=== PATIENT | male | born 1960 | race Caucasian/White ===

== ENCOUNTER 2021-03-20 10:03 | Inpatient (IN) | payer BC, SELFPAY ==
[2021-03-20] VITALS (48 sets, daily range): BP systolic 108–154; BP diastolic 53–85; PULSE 52–96; RESP 11–28; TEMP 36.6–39.2; O2SAT 94–100; BMI 24.2
--- NOTE | 2021-03-20 10:58 | W.ED.GENADLT ---
HPI - General Adult General: Chief complaint: General Medical Stated complaint: LOW BLOOD COUNT Time Seen by Provider: 03/20/21 10:53 History of Present Illness: HPI narrative: 60-year-old male presents with low blood count patient reports that he was seen by his primary care provider yesterday and had labs drawn. He got a call and was told to come in to the ER today because his hemoglobin was around 3.9. Patient reports that for months he has had some black tarry stool. He never had a colonoscopy. He reports he gets a little winded and short of breath with any activity. He complains of some mild left upper quadrant/left lower chest pain has been there for couple months. No other systemic complaints Associated symptoms: Deny chest pain, headache(s), nausea, rash, palpitations or vomiting Review of Systems Const: Reports: fatigue; Denies: fever(s) or chills Eyes: Denies: change in vision ENMT: Denies: throat pain or mouth pain Card: Reports: dyspnea on exertion; Denies: chest pain, palpitations or irregular heart rhythm Resp: Denies: productive cough, non-productive cough or wheezing GI: Reports: melena; Denies: abdominal pain, nausea or vomiting : Denies: flank pain or difficulty urinating Musc: Denies: neck pain or back pain Skin/Breast: Denies: rash Neuro: Denies: headache(s) Psych: Denies: anxiety or depression Physical Exam Const: COMMON NORMALS: no acute distress and no limitations Resp: COMMON NORMALS: normal respiratory effort and clear to auscultation bilaterally EFFORT & INSPECTION: Yes able to speak in complete sentences AUSCULTATION: clear to auscultation bilaterally Cardio: COMMON NORMALS: regular rate and regular rhythm RATE: regular rate RHYTHM: regular rhythm GI: COMMON NORMALS: Soft to palpation and non-tender PALPATION: Yes Soft to palpation Extremity: COMMON NORMALS: normal to inspection and full ROM Psych: COMMON NORMALS: mental status grossly normal and speech normal ATTITUDE: Yes calm SPEECH: Yes normal speech Skin: GENERAL SKIN EXAM: pallor Course Vital Signs: Vital signs: Vital Signs Temperature 97.9 F 03/20/21 10:47 Pulse Rate 74 03/20/21 10:47 Respiratory Rate 18 03/20/21 10:47 Blood Pressure 129/72 03/20/21 10:47 Pulse Oximetry 100 03/20/21 10:47 Coding Level of Care Code ED Mobile Application Engineer for [facility]
[2021-03-20] MEDS: pantoprazole 40 mg SDV IVP ×2 (11:38→22:09)
[2021-03-20 11:45] LABS: INR 1.06 (0.8-1.2)
[2021-03-20 11:46] LABS: Partial Thromboplastin Time 30.3 SECONDS (23.9-36.7)
[2021-03-20 12:00] LABS: Basophils % 0.5 %; Eosinophils # 0.1 10^3/uL (0.0-0.8); Eosinophils % 1.1 %; Lymphocytes # 1.1 10^3/uL (0.8-4.8); Mean Corpuscular HGB Conc 22.7 g/dL (30.0-36.0); Mean Corpuscular Hemoglobin 13.2 pg (28.0-34.0); Mean Corpuscular Volume 58.4 fL (80-94); Mean Platelet Volume 8.9 fL (7.4-10.4); Monocytes # 0.8 10^3/uL (0.2-0.9); Monocytes % 12.5 %; Neutrophils # 4.17 10^3/uL (1.8-7.7); Neutrophils % 67.4 %; Nucleated Red Blood Cells % 0.3 %; Platelet Count 619 10^3/cmm (130-400); Red Blood Count 2.19 10^6/uL (4.1-5.3); Red Cell Distribution Width 23.9 % (12.1-15.1); White Blood Count 6.2 10^3/uL (4.0-10.0)
[2021-03-20 12:01] LABS: Alanine Aminotransferase < 5 U/L (0-41); Albumin Level 3.9 g/dL (3.5-5.2); Alkaline Phosphatase 118 IU/L (40-130); Anion Gap 13.9 (5-19); Aspartate Amino Transferase 8 U/L (0-40); Blood Urea Nitrogen 11 mg/dL (6-20); Calcium 8.2 mg/dL (8.5-10.5); Carbon Dioxide 23 mmol/L (22-29); Chloride 101 mmol/L (98-107); Globulin 2.2 g/dL (1.3-4.6); Glomerular Filtration Rate 137.9 mL/min (90-130); Glucose 91 mg/dL (65-115); Magnesium 2.2 mg/dL (1.7-2.3); Osmolality Calculated 277 mOsm/kg (285-295); Potassium 3.9 mmol/L (3.5-5.1); Sodium 134 mmol/L (136-145); Total Bilirubin 0.3 mg/dL (0.15-1.2); Total Protein 6.1 g/dL (6.6-8.7)
[2021-03-20 12:10] LABS: Hematocrit 12.8 % (42.0-52.0); Hemoglobin 2.9 g/dL (11.7-16.6)
--- NOTE | 2021-03-20 12:30 | CT_ITS ---
WS: [id number] CT scan of the abdomen and pelvis without Oral and IV contrast. Additional two-dimensional coronal an d sagittal reconstruction was performed. 03/20/2021 Clinical Data: hgb 2.9, black stool Comparison: None. DLP: 979.[address] scans at [facility] use at least one of these dose optimization techniques: automat ed exposure control; mA and/or kV adjustment per patient size (includes targeted exams where dose is matched to clinical indication); or iterative reconstruction. Findings: The lower lungs show no nodules, masses or effusions. The liver, spleen, adrenal glands and pancreas are normal. There are numerous gallstones present but there is no pericholecystic fluid. The kidneys show a nonobstructive 0.3 cm central right renal calcu tere. The left kidney is normal. No cysts, masses or hydronephrosis is seen. The abdominal aorta is no rmal in size with minimal calcification in the wall.. No appendicitis or diverticulitis is seen. The stomach and small bowel are not remarkable. The colon is usually dilated with a large amount of fecal material within. The bladder is unremarkable. No inguinal hernia is seen. The bones of the lower thorax, lumbar spine, pelvis, and hips show only mild osteoarthritic change of the lower lumbar vertebral bodies. CT/CT abdomen pelvis wo con [id number] Impression: 1. Cholelithiasis. 2. Nonobstructing small central right renal calculus. 3. Large amount of fecal material throughout the colon.
[2021-03-20] MEDS: sodium chloride 0.9% 500 ML 999 ML IV (12:54)
--- NOTE | 2021-03-20 14:12 | PM.HP ---
Providers/Chief Complaint Primary Care Provider: Salma Perez DO Chief Complaint: LOW BLOOD COUNT History of Present Illness Hao Reddy is a 60 year old male with no significant past medical history, who presents to [facility] due to complaints of low hemoglobin. Patient tells me that he was following up with his regular primary care physician, who ordered a CBC, he was called by his primary care provider this morning that his hemoglobin was 3 that he should come to the emergency room immediately. Patient tells me that for the last year, he has been feeling weak, fatigued, tired, has had 40 pound weight loss, does report lightheadedness and dizziness with exertion, some chest palpitations, does report dark stools, no bloody stools, does have hemorrhoids, no history of GI bleeds, no personal family history of colon cancer, does report ibuprofen use regularly, no hematemesis, does consume alcohol on the weekends, no history of liver cirrhosis, he tells me that he has bowel movements daily, no history of constipation. He has never had a colonoscopy, has never had an EGD, no fevers, no chills. Review of Systems Const: Reports: fatigue and malaise; Denies: fever(s) or chills Eyes: Denies: change in vision or blurry vision ENMT: Denies: nasal congestion Card: Reports: palpitations and lightheadedness; Denies: chest pain or pre-syncope Resp: Denies: dyspnea, productive cough, non-productive cough or wheezing GI: Denies: abdominal pain, nausea, vomiting, hematemesis, diarrhea, constipation, hematochezia or melena : Denies: flank pain, difficulty urinating, dysuria or urinary frequency Musc: Denies: neck pain or back pain Skin/Breast: Denies: rash Neuro: Denies: headache(s), dizziness or vertigo Psych: Denies: anxiety or depression Endo: Denies: polyuria or polydipsia Medications/Allergies Home Medications Medication Instructions Recorded Confirmed Last Taken Type ibuprofen 200 mg PO Q6H PRN 03/20/21 03/20/21 03/20/21 01:30 History Allergies Allergy/AdvReac Type Severity Reaction Status Date / Time No Known Allergies Allergy Verified 03/20/21 10:51 PFSH Acute PFSH: Surgical History (Updated 03/20/21 @ 14:16 by Kartik Blanca MD) History of appendectomy Family History (Updated 03/20/21 @ 14:16 by Kartik Blanca MD) Father CAD (coronary artery disease) Mother Melanoma Father Throat cancer Social History (Updated 03/20/21 @ 14:17 by Kartik Blanca MD) Smoking and tobacco status: never smoked Alcohol intake: current Alcohol use comment: Drinks only on the weekends Substance/Drug Use: never Vitals/I&O/Wt Last Vital Signs Temp 98.7 F 03/20/21 13:18 Pulse 79 03/20/21 14:00 Resp 18 03/20/21 14:00 BP 125/66 03/20/21 14:00 Pulse Ox 94 03/20/21 14:00 03/19/21 03/20/21 03/20/21 22:59 06:59 14:59 Intake Total 0 / 0 Balance 0 / 0 Weight last 48 hrs Weight 76.657 kg Physical Exam Narrative: EXAM NARRATIVE: Quite pale appearing, has conjunctival pallor Const: COMMON NORMALS: no acute distress and patient oriented x3 GENERAL APPEARANCE: cooperative and comfortable HENMT: COMMON NORMALS: normocephalic HEAD & SCALP: normocephalic Eye: COMMON NORMALS: Equal, round and reactive pupils present and EOMs intact bilaterally GENERAL EYE: appearance normal, both eyes and all related structures PUPIL: Yes Equal, round and reactive pupils present Neck/C-Spine: COMMON NORMALS: full ROM, no lymphadenopathy, no JVD and Thyroid normal THYROID: Thyroid normal Lymph: LYMPHATIC: no lymphadenopathy noted Resp: COMMON NORMALS: normal respiratory effort, No retractions, No use of accessory muscles and clear to auscultation bilaterally AUSCULTATION: clear to auscultation bilaterally Cardio: COMMON NORMALS: no JVD, regular rate, regular rhythm, S1 normal heart sound present, S2 normal heart sound present, No gallops present (Cardio), No clicks present (Cardio) and No murmurs present (Cardio) RATE: regular rate RHYTHM: regular rhythm HEART SOUNDS: S1 normal heart sound present and S2 normal heart sound present GI: COMMON NORMALS: Normal to inspection, nondistended, normoactive bowel sounds present, Soft to palpation, non-tender and No hepatosplenomegaly present PALPATION: Yes Soft to palpation and Yes No hepatosplenomegaly present OTHER: Abdominal density felt throughout right upper quadrant and left upper quadrant Extremity: COMMON NORMALS: normal to inspection, full ROM and no pedal edema Neuro: COMMON NORMALS: patient oriented x3, CN's II-XII intact bilaterally, moves all extremities and no focal motor deficits Psych: COMMON NORMALS: mental status grossly normal, Normal thought process present and cooperative THOUGHT PROCESS: Normal thought process present Data : 03/20/21 11:26 03/20/21 11:26 A&P Assessment and plan (1) Acute anemia: -With fatigue, malaise, weight loss, lightheadedness -Concerning for underlying malignancy -Does have significant stool burden, possible obstructive malignancy -But cannot rule out underlying GI bleed especially NSAID use -No cardiovascular history, no history of CHF -Hemoglobin 2.9 -Hemodynamic stable, although does complain of lightheadedness Plan: -Admit to ICU -We will transfuse 4 units PRBC, Lasix during the third unit, 1 unit FFP -Monitor INR, monitor calcium -We will order iron studies, B12, folate, ESR, CEA -Monitor respiratory status closely, monitor for fluid overload, Lasix as needed -Posttransfusion H&H -Protonix load followed by Protonix 40 IV twice daily -Does have significant stool burden, on the CT scan concerning for fecal impaction, possible obstructive malignancy -Hold off on a bowel regimen until general surgery sees him -Keep n.p.o., for possible EGD -Nurse notified that bladder is full, patient was advised to urinate into urinal if not we will have to place a Rivera -General surgery on consult -Full code -SCDs for DVT prophylaxis Status: Acute (2) Fecal impaction: Status: Acute Attestations Medical Necessity Statement*: She requires hospitalization, inpatient, greater than 2 midnights, for acute anemia Coding Level of Care Code Acute Teacher Associate for [facility] Fwd Diagnoses Acute anemia D64.9 Fecal impaction K56.41
[2021-03-20 15:05] LABS: Ferritin 5 ng/mL (30-400); Iron 8 ug/dL (59-158)
[2021-03-20 15:21] LABS: Vitamin B12 465 pg/mL (232-1245)
[2021-03-20 15:22] LABS: Folate Level 10.3 ng/mL (4.5-32.2)
[2021-03-20 15:36] LABS: Carcinoembryonic Antigen 12.4 ng/mL (0.0-4.7)
--- NOTE | 2021-03-20 15:46 | PC.NURSE ---
Blood transfusion completed
[2021-03-20 16:09] LABS: Reticulocyte % 1.9 % (0.5-2.0)
[2021-03-20 16:18] LABS: LAB Peripheral Smear Sent for Review
[2021-03-20 16:48] LABS: Erythrocyte Sedimentation Rate 10 mm/hr (0-10)
[2021-03-20 18:21] LABS: NT Pro B Type Natriuretic Pept 411 pg/mL (0-125)
[2021-03-20 18:33] LABS: INR 1.08 (0.8-1.2)
[2021-03-20 18:43] LABS: Lactic Sepsis W/Reflex 0.9 mmol/L (0.5-2.2)
[2021-03-20] MEDS: sodium chloride 0.9% (100 ml) 100 ML 35 ML (19:56)
[2021-03-20] MEDS: FUROsemide 10 mg/mL SDV 4mL 40 MG IVP (19:57)
[2021-03-20 21:50] LABS: Hematocrit 21.6 % (42.0-52.0)
[2021-03-20 21:59] LABS: Hemoglobin 6.4 g/dL (11.7-16.6)
[2021-03-20 22:03] LABS: Thyroid Stimulating Hormone 1.91 uIU/mL (0.27-4.20)
[2021-03-20] MEDS: acetaminophen 325 mg Tablet 650 MG PO (22:29)
--- NOTE | 2021-03-20 23:30 | PC.NURSE ---
Dr. Gifford notified of post transfusion temperatures, orders received. See new orders. Dr. Gifford also ordered to give perviously ordered FFP with CBC 1hr post transfusion, repeat H&H Q4hr, monitor and report.
[2021-03-21] VITALS (47 sets, daily range): BP systolic 91–126; BP diastolic 40–75; PULSE 56–83; RESP 14–35; TEMP 36.8–38.6; O2SAT 95–100
[2021-03-21 03:48] LABS: Alanine Aminotransferase < 5 U/L (0-41); Albumin Level 3.6 g/dL (3.5-5.2); Alkaline Phosphatase 112 IU/L (40-130); Anion Gap 12.6 (5-19); Aspartate Amino Transferase 14 U/L (0-40); Blood Urea Nitrogen 9 mg/dL (6-20); Calcium 7.9 mg/dL (8.5-10.5); Carbon Dioxide 24 mmol/L (22-29); Chloride 99 mmol/L (98-107); Globulin 2.3 g/dL (1.3-4.6); Glomerular Filtration Rate 115.4 mL/min (90-130); Glucose 92 mg/dL (65-115); Osmolality Calculated 272 mOsm/kg (285-295); Phosphorus 3.7 mg/dL (2.5-4.5); Potassium 3.6 mmol/L (3.5-5.1); Sodium 132 mmol/L (136-145); Total Bilirubin 1.5 mg/dL (0.15-1.2); Total Protein 5.9 g/dL (6.6-8.7)
[2021-03-21 04:12] LABS: Basophils # 0.1 10^3/uL (0.0-0.1); Basophils % 0.9 %; Eosinophils % 0.2 %; Lymphocytes # 0.7 10^3/uL (0.8-4.8); Lymphocytes % 10.5 %; Mean Corpuscular HGB Conc 28.6 g/dL (30.0-36.0); Mean Corpuscular Hemoglobin 19.5 pg (28.0-34.0); Mean Platelet Volume 8.7 fL (7.4-10.4); Monocytes # 0.5 10^3/uL (0.2-0.9); Monocytes % 7.5 %; Neutrophils # 5.29 10^3/uL (1.8-7.7); Neutrophils % 80.4 %; Nucleated Red Blood Cells % 0.6 %; Platelet Count 521 10^3/cmm (130-400); Red Blood Count 2.93 10^6/uL (4.1-5.3); Red Cell Distribution Width 29.6 % (12.1-15.1); White Blood Count 6.6 10^3/uL (4.0-10.0)
[2021-03-21 04:14] LABS: Hematocrit 19.9 % (42.0-52.0); Hemoglobin 5.7 g/dL (11.7-16.6)
[2021-03-21 04:15] LABS: Mean Corpuscular Volume 67.9 fL (80-94)
[2021-03-21] MEDS: acetaminophen 325 mg Tablet 650 MG PO ×2 (05:09→14:38)
[2021-03-21] MEDS: sodium chloride 0.9% 250 ML IV (05:32)
[2021-03-21] MEDS: sodium chloride 0.9% 250 ML 100 ML IV (07:39)
[2021-03-21] MEDS: magnesium citrate Btl 296 mL PO ×3 (08:36→20:15)
--- NOTE | 2021-03-21 08:56 | PC.CHAP ---
Pastoral Care Encounter/Spiritual Assessment Type of Contact [] Declined labelling machine operator visit [] Patient/Family/Request visit [] Outpatient visit [] Follow-up visit [] Physician referral [] Code/Alert [x] Routine visit [] Staff referral [] Actively dying [] Patient sleeping [] Family support [] [] Out of room [] Palliative care [] [] Receiving care in room [] Pre-surgical visit [] Trauma [] Long length of stay [x] ICU visit [] Other: Relational/Emotional Strength [] Patient feels connected with others/family/visitors/staff [] Distress [] Loneliness/isolation [] Abandonment Spirituality of Patient [] Person of Do [] Attends Restoration of their Do [] Believes in Prayer [] Reads Bible or Christianity materials [] There are Spiritual issues to be addressed Office Automation Technician Interventions [x] Prayer [] Active listening [] Non-anxious presence [] Spiritual/emotional support [] Crisis/trauma care [] Spiritual counseling [] Bereavement support [] Provided bereavement packet [] Provided Bible/devotional materials [] Provided toy/stuffed animal, coloring book to patient or family member [] Provided Communion [] Anointing/[place] [] Salvation [x] Completed spiritual assessment [] Other: Impact on Illness or Injury [] Angry [] Fearful [] Anxious [] Often cries [] Exhaustion [] Unable to work [] Unable to attend protestant [] Unable to walk/stand [] Unable to read [] Unable to drive [] Unable to eat/drink [] Unable to sleep [] Unable to be with family [] Patient intubated [] Other: Summary Time spent with patient
--- NOTE | 2021-03-21 09:58 | P.CONIM_ITS ---
Providers/Reason For Consult Consulting Physican/Specialty*: Kartik Blanca MD Reason for Consult*: Anemia Attending Physician: Kartik Blanca MD Primary Care Provider: Salma Perez DO History of Present Illness History of Present Illness Hao Reddy is a 60 year old male who had been feeling lightheaded and dizzy for the last few months. Patient had recent blood work with his PCP and was noted to have a hemoglobin around 3. Patient denies any abdominal pain, nausea, vomiting, hematemesis, hematochezia, melena. No family history of colon cancer. No prior EGD or colonoscopy. Patient denies history of peptic ulcer disease. He states that he has been more constipated recently and has a bowel movement every other day Review of Systems General: Reports: 10 or more systems reviewed and unremarkable except in HPI and below Meds/Allergies Home Medications and Allergies Home Medications Medication Instructions Recorded Confirmed Last Taken Type ibuprofen 200 mg PO Q6H PRN 03/20/21 03/20/21 03/20/21 01:30 History Allergies Allergy/AdvReac Type Severity Reaction Status Date / Time No Known Allergies Allergy Verified 03/20/21 10:51 Current Medications Current Medications Generic Name Dose Route Start Last Admin Trade Name Freq PRN Reason Stop Dose Admin Acetaminophen 650 mg 03/20/21 17:03 03/21/21 05:09 Acetaminophen 325 Mg Tablet PO 650 mg Q6H PRN Administration Mild/Mod Pain Or Temp >/= 101 Pantoprazole Sodium 40 mg 03/20/21 23:00 03/20/21 22:09 Pantoprazole 40 Mg Sdv IVP 40 mg Q12H CORINNE Administration PFSH Acute PFSH: Surgical History History of appendectomy Family History Father CAD (coronary artery disease) Mother Melanoma Father Throat cancer Social History Smoking and tobacco status: never smoked Alcohol intake: current Alcohol use comment: Drinks only on the weekends Substance/Drug Use: never Vitals/I&O/Wt Last Vital Signs Temp 98.6 F 03/21/21 08:56 Pulse 77 03/21/21 08:56 Resp 18 03/21/21 08:56 BP 111/53 03/21/21 08:56 Pulse Ox 98 03/21/21 07:56 03/20/21 03/21/21 03/21/21 22:59 06:59 14:59 Intake Total 350 / 1396 296 / 1396 1100 / 1100 Output Total 2200 / 3720 1520 / 3720 Balance -1850 / -2324 -1224 / -2324 1100 / 1100 Weight last 48 hrs Weight 169 lb Physical Exam Narrative: EXAM NARRATIVE: HEENT: Normocephalic Eye: Sclera /conjunctiva normal Abdomen: Soft to palpation, nontender, slightly distended Neurological: Oriented to place person and time Skin: Intact, no lesions appreciated on gross exam Data Micro: Micro: Microbiology 03/20/21 22:18 Blood Culture - Pr eliminary Blood SPECIMEN [facility] 03/20/21 22:18 Blood Culture - Pr eliminary Blood SPECIMEN [facility] A&P Assessment and plan (1) Acute anemia: 60-year-old male with hemoglobin of 5.7 today after blood transfusion, no evidence of active GI bleed Plan for EGD/colonoscopy under [facility] Procedure, risks, benefits and alternatives have been discussed with the patient who wishes to proceed with surgery. Clear liquid diet and n.p.o. after midnight CT abdomen pelvis did not show any acute pathology except for significant fecal impaction. Discussed with the patient that given his low blood count we need to rule out GI source for bleed. Status: Acute (2) Fecal impaction: We will start him on a bowel regimen for the panendoscopy tomorrow but also add milk of molasses enema as well as another bottle of magnesium citrate this morning. Status: Acute Coding Level of Care Code Acute Community Relations Director for [facility] Fwd Diagnoses Acute anemia D64.9 Fecal impaction K56.41
[2021-03-21] MEDS: pantoprazole 40 mg SDV IVP ×2 (11:14→23:17)
--- NOTE | 2021-03-21 11:18 | PM.PN ---
Subjective Subjective: Interval history: Patient was examined this morning, he tells me that he is feeling a lot better, he is received a total of 4 units of PRBC, 1 unit FFP, is a lot more colored him, he still has not had a bowel movement, is taking a bowel prep, no shortness of breath, no lightheadedness, no dizziness, no nausea, no vomiting Vitals/I&O/Wt Last Vital Signs Temp 98.6 F 03/21/21 08:56 Pulse 61 03/21/21 10:00 Resp 17 03/21/21 10:00 BP 106/57 03/21/21 10:00 Pulse Ox 99 03/21/21 10:00 03/20/21 03/21/21 03/21/21 22:59 06:59 14:59 Intake Total 350 / 350 296 / 646 1580 / 1580 Output Total 2200 / 2200 1520 / 3720 400 / 400 Balance -1850 / -1850 -1224 / -3074 1180 / 1180 Weight last 48 hrs Weight 76.657 kg Physical Exam Narrative: EXAM NARRATIVE: Has much more color, giselle cheeks Const: COMMON NORMALS: no acute distress and patient oriented x3 HENMT: COMMON NORMALS: normocephalic HEAD & SCALP: normocephalic Neck/C-Spine: COMMON NORMALS: no JVD Resp: COMMON NORMALS: normal respiratory effort, No retractions, No use of accessory muscles and clear to auscultation bilaterally AUSCULTATION: clear to auscultation bilaterally Cardio: COMMON NORMALS: no JVD, regular rate, regular rhythm, S1 normal heart sound present and S2 normal heart sound present RATE: regular rate RHYTHM: regular rhythm HEART SOUNDS: S1 normal heart sound present and S2 normal heart sound present GI: COMMON NORMALS: Normal to inspection, nondistended, normoactive bowel sounds present, Soft to palpation, non-tender, No hepatosplenomegaly present and no bruits PALPATION: Yes Soft to palpation, Yes No hepatosplenomegaly present and Yes Palpable mass present (Right upper quadrant, left upper quadrant, likely related to high stool bur) Extremity: COMMON NORMALS: capillary refill normal, no clubbing, cyanosis or edema, no calf tenderness and no pedal edema Neuro: COMMON NORMALS: patient oriented x3 Psych: COMMON NORMALS: mental status grossly normal Data : 03/21/21 03:00 03/21/21 03:00 Micro: Microbiology 03/20/21 22:18 Blood Culture - Preliminary Blood SPECIMEN COLLECTED 03/20/21 22:18 Blood Culture - Preliminary Blood SPECIMEN COLLECTED A&P Assessment and plan (1) Acute anemia: -With fatigue, malaise, weight loss, lightheadedness -Concerning for underlying malignancy -Does have significant stool burden, possible obstructive malignancy -But cannot rule out underlying GI bleed especially NSAID use -No cardiovascular history, no history of CHF -Hemoglobin 5.9 -Working on his fourth unit of blood, 1 unit FFP -Hemodynamic stable, although does complain of lightheadedness Plan: -Admit to ICU -Posttransfusion H&H -Monitor INR, monitor calcium -Has severe iron deficiency anemia, hold off on giving iron due to concerns for iron overload given volume of blood products -Monitor respiratory status closely, monitor for fluid overload, Lasix as needed -Posttransfusion H&H -Protonix load followed by Protonix 40 IV twice daily -Does have significant stool burden, on the CT scan concerning for fecal impaction, possible obstructive malignancy -He is receiving a bowel regimen -Clinical diet -Plan for EGD and colonoscopy tomorrow -General surgery on consult -Full code -SCDs for DVT prophylaxis Plan for today monitor hemoglobin, monitor hemodynamics, monitor INR, monitor calcium, transfuse FFP, PRBC as needed, bowel prep, n.p.o. midnight Status: Acute (2) Fecal impaction: Status: Acute Attestations Medical Necessity Statement*: Patient requires hospitalization, inpatient, greater than 2 midnights, for acute anemia Coding Level of Care Code Acute Creosoting Engineer for [facility] Fwd Diagnoses Acute anemia D64.9 Fecal impaction K56.41
[2021-03-21 12:22] LABS: Basophils % 0.5 %; Hematocrit 25.6 % (42.0-52.0); Hemoglobin 7.4 g/dL (11.7-16.6); Lymphocytes # 0.6 10^3/uL (0.8-4.8); Lymphocytes % 9.7 %; Mean Corpuscular HGB Conc 28.9 g/dL (30.0-36.0); Mean Corpuscular Hemoglobin 20.3 pg (28.0-34.0); Mean Corpuscular Volume 70.3 fL (80-94); Mean Platelet Volume 8.4 fL (7.4-10.4); Monocytes # 0.5 10^3/uL (0.2-0.9); Monocytes % 8.5 %; Neutrophils # 4.84 10^3/uL (1.8-7.7); Neutrophils % 80.8 %; Nucleated Red Blood Cells # 0.1 /100WBC; Platelet Count 632 10^3/cmm (130-400); Red Blood Count 3.64 10^6/uL (4.1-5.3)
[2021-03-21 12:31] LABS: INR 1.11 (0.8-1.2)
[2021-03-21 12:41] LABS: Anion Gap 17.6 (5-19); Blood Urea Nitrogen 9 mg/dL (6-20); Calcium 8.8 mg/dL (8.5-10.5); Carbon Dioxide 21 mmol/L (22-29); Chloride 99 mmol/L (98-107); Glomerular Filtration Rate 98.9 mL/min (90-130); Glucose 99 mg/dL (65-115); Osmolality Calculated 277 mOsm/kg (285-295); Potassium 3.6 mmol/L (3.5-5.1); Sodium 134 mmol/L (136-145)
[2021-03-21] MEDS: bisacodyl 5 mg Tablet 40 MG PO (14:36)
[2021-03-21 19:35] LABS: Hematocrit 24.8 % (42.0-52.0); Hemoglobin 7.2 g/dL (11.7-16.6)
--- NOTE | 2021-03-21 20:53 | PC.NURSE ---
Physician Notified Notified Dr. Gifford of 1930 Hgb and Hct. No new orders to transfuse at this time, reassess after midnight labs.
[2021-03-22] VITALS (25 sets, daily range): BP systolic 91–125; BP diastolic 45–69; PULSE 53–74; RESP 15–55; TEMP 36.3–38.2; O2SAT 96–100
[2021-03-22 00:42] LABS: Hematocrit 24.1 % (42.0-52.0)
--- NOTE | 2021-03-22 00:57 | PC.NURSE ---
Notified Physician Dr. Gifford notified of midnight H&H results. No new orders received for transfusion at this time. Await AM labs for evaluation of transfusion.
--- NOTE | 2021-03-22 04:30 | PC.NURSE ---
Enema 800ml tap water enema given, pt tolerated well. Results copious liquid brown BM.
--- NOTE | 2021-03-22 05:00 | USCV_ITS ---
Hao Reddy Age: 60 Gender: M : 1960 Exam Date: 03/22/2021 05:32 Ordering Phys: Kartik Blanca MD Technologist: Meagan Aguilera [place] [facility] [place]: SOB BP: 133 / 69 HR: 57 Rhythm: Sinus Technical Quality: Adequate MEASUREMENTS (Male / Female) Normal Values 2D ECHO LV Diastolic Diameter PLAX 4.2 cm 4.2 - 5.9 / 3.9 - 5.3 cm LV Systolic Diameter PLAX 3.0 cm LV Chamber Size 4.9 cm IVS Diastolic Thickness 0.9 cm 0.6 - 1.0 / 0.6 - 0.9 cm IVS Systolic Thickness 2.0 cm LVPW Diastolic Thickness 4.3 cm 0.6 - 1.0 / 0.6 - 0.9 cm LVPW Systolic Thickness 1.7 cm RV Chamber Size 0.0 cm LVOT Diameter 2.0 cm LV Ejection Fraction 2D Teich 77.0 % LV Ejection Fraction MOD 2C 54.1 % LV Ejection Fraction 2C AL 56.8 % LA Diameter 4.1 cm LA Width 3.3 cm LA Height 5.4 cm RA Width 5.3 cm RA Height 5.2 cm Aorta at Sinotubular Diameter 3.5 cm M-MODE LV Diastolic Diameter MM 5.4 cm 4.2 - 5.9 / 3.9 - 5.3 cm LV Systolic Diameter MM 3.5 cm LV Ejection Fraction MM Teich 64.2 % IVS Diastolic Thickness MM 1.8 cm 0.6 - 1.0 / 0.6 - 0.9 cm IVS Systolic Thickness MM 2.4 cm LVPW Diastolic Thickness MM 2.1 cm 0.6 - 1.0 / 0.6 - 0.9 cm LVPW Systolic Thickness MM 2.0 cm Aortic Annulus Diameter 3.5 cm LA Ao Ratio MM 1.5 MV E Point Septal Separation 0.7 cm DOPPLER AV Peak Velocity 201.0 cm/s LVOT Peak Velocity 100.0 cm/s AV Area Cont Eq vti 1.8 cm squared AV Area Cont Eq pk 1.6 cm squared MV Area PHT 3.0 cm squared Mitral E to A Ratio 1.2 MV E' Velocity 65.5 cm/s Mitral E to MV E' Ratio 7.9 Mitral E to LV E' Lateral Ratio 6.7 Mitral E to LV E' Septal Ratio 9.8 TR Peak Velocity 273.9 cm/s TR Peak Gradient 30.0 mmHg TR Mean Velocity 200.9 cm/s TR Mean Gradient 18.3 mmHg TR Velocity Time Integral 69.0 cm TV Peak E Velocity 85.0 cm/s Right Atrial Pressure 3.0 mmHg Pulmonary Artery Systolic Pressu 33.0 mmHg PV Peak Velocity 85.0 cm/s RV Acceleration Time 0.2 s RV Ejection Time 0.4 s RV AcT/ET 0.5 FINDINGS Left Ventricle Normal left ventricular cavity size. Normal left ventricular systolic function. No regional wall motion abnormalities. Left ventricular ejection fraction is estimated at 64 %. Normal diastolic function. Right Ventricle The right ventricle is normal in size and function. Right Atrium The right atrium is normal in size. Left Atrium The left atrium is normal in size. Mitral Valve Structurally normal mitral valve without significant stenosis or prolapse. There is no mitral regurgitation. Aortic Valve Moderate aortic valve calcification. No aortic valve stenosis. No aortic valve regurgitation. Tricuspid Valve Mild tricuspid valve regurgitation. Pulmonic Valve Structurally normal pulmonic valve without significant stenosis. There is no pulmonic regurgitation. Pericardium Normal pericardium without effusion. Aorta Normal ascending aorta dimension. CONCLUSIONS 1-Normal left ventricular cavity size. Normal left ventricular systolic function. No regional wall motion abnormalities. Left ventricular ejection fraction is estimated at 64 %. Normal diastolic function. 2-Mild tricuspid valve regurgitation. 3-Moderate aortic valve calcification. No aortic valve stenosis. No aortic valve regurgitation. 4-There is no pericardial effusion. 5-There is no pericardial effusion. 6-Pulmonary artery systolic pressure is within normal limits. 7-Right atrial pressure is around 5 mm of mercury. 8-There are no prior echocardiogram studies to compare. Ar Yates MD (Electronically Signed) Final Date: 24 March 2021 16:58 S
[2021-03-22 06:49] LABS: Hematocrit 24.3 % (42.0-52.0)
[2021-03-22 06:59] LABS: Alanine Aminotransferase 7 U/L (0-41); Albumin Level 3.7 g/dL (3.5-5.2); Alkaline Phosphatase 115 IU/L (40-130); Anion Gap 14.2 (5-19); Aspartate Amino Transferase 10 U/L (0-40); Blood Urea Nitrogen 8 mg/dL (6-20); Calcium 8.3 mg/dL (8.5-10.5); Carbon Dioxide 27 mmol/L (22-29); Chloride 97 mmol/L (98-107); Globulin 2.5 g/dL (1.3-4.6); Glomerular Filtration Rate 115.4 mL/min (90-130); Glucose 92 mg/dL (65-115); Magnesium 2.4 mg/dL (1.7-2.3); Osmolality Calculated 278 mOsm/kg (285-295); Phosphorus 3.2 mg/dL (2.5-4.5); Potassium 3.2 mmol/L (3.5-5.1); Sodium 135 mmol/L (136-145); Total Bilirubin 0.7 mg/dL (0.15-1.2); Total Protein 6.2 g/dL (6.6-8.7)
[2021-03-22] MEDS: pantoprazole 40 mg SDV IVP (10:03)
[2021-03-22] MEDS: lidocaine 1% 5 ML in potassium chloride premix 100 ML 25 ML IV (10:07)
--- NOTE | 2021-03-22 10:45 | PM.PN ---
Subjective Subjective: Interval history: Patient was examined this morning, he did have a few bowel movements overnight, his abdomen feels less distended, he feels better, no nausea, no vomiting, he is awaiting a possible EGD and colonoscopy Vitals/I&O/Wt Last Vital Signs Temp 98.1 F 03/22/21 10:27 Pulse 60 03/22/21 10:27 Resp 16 03/22/21 10:27 BP 115/64 03/22/21 10:27 Pulse Ox 98 03/22/21 10:27 03/21/21 03/22/21 03/22/21 22:59 06:59 14:59 Intake Total 750 / 2510 0 / 0 Output Total 400 / 800 Balance 350 / 1710 - / -1 Weight last 48 hrs Weight 76.657 kg Physical Exam Narrative: EXAM NARRATIVE: Has much more color, giselle cheeks Const: COMMON NORMALS: no acute distress and patient oriented x3 HENMT: COMMON NORMALS: normocephalic HEAD & SCALP: normocephalic Neck/C-Spine: COMMON NORMALS: no JVD Resp: COMMON NORMALS: normal respiratory effort, No retractions, No use of accessory muscles and clear to auscultation bilaterally AUSCULTATION: clear to auscultation bilaterally Cardio: COMMON NORMALS: no JVD, regular rate, regular rhythm, S1 normal heart sound present and S2 normal heart sound present RATE: regular rate RHYTHM: regular rhythm HEART SOUNDS: S1 normal heart sound present and S2 normal heart sound present GI: COMMON NORMALS: Normal to inspection, nondistended, normoactive bowel sounds present, Soft to palpation, non-tender, No hepatosplenomegaly present, no masses and no bruits PALPATION: Yes Soft to palpation and Yes No hepatosplenomegaly present Extremity: COMMON NORMALS: capillary refill normal, no clubbing, cyanosis or edema, no calf tenderness and no pedal edema Neuro: COMMON NORMALS: patient oriented x3 Psych: COMMON NORMALS: mental status grossly normal Data : 03/22/21 06:35 03/22/21 06:35 Micro: Microbiology 03/20/21 22:18 Blood Culture - Preliminary Blood NEGATIVE TO DATE 03/20/21 22:18 Blood Culture - Preliminary Blood NEGATIVE TO DATE A&P Assessment and plan (1) Acute anemia: -With fatigue, malaise, weight loss, lightheadedness -Concerning for underlying malignancy -Does have significant stool burden, possible obstructive malignancy -But cannot rule out underlying GI bleed especially NSAID use -No cardiovascular history, no history of CHF -Hemoglobin 7.0 -Working on his 5UPRBC , 1 unit FFP -Hemodynamic stable, although does complain of lightheadedness Plan: -move to general medical floors after colonoscopy -Posttransfusion H&H -Monitor INR, monitor calcium -Has severe iron deficiency anemia, hold off on giving iron due to concerns for iron overload given volume of blood products -Monitor respiratory status closely, monitor for fluid overload, Lasix as needed -Posttransfusion H&H -Protonix 40 IV twice daily -Does have significant stool burden, on the CT scan concerning for fecal impaction, possible obstructive malignancy -He is receiving a bowel regimen -Clinical diet -Plan for EGD and colonoscopy today -General surgery on consult -Full code -SCDs for DVT prophylaxis Plan for today monitor hemoglobin, monitor hemodynamics, transfuse 5th unit of blood, will go down to colonoscopy suite this afternoon Status: Acute (2) Fecal impaction: Status: Acute Attestations Medical Necessity Statement*: Patient requires hospitalization for acute anemia, critical care time spent over 35 minutes Coding Level of Care Code 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
--- NOTE | 2021-03-22 11:29 | ANES.PREANE2 ---
Pre-Anesthetic Assessment Pre-Anesthetic Assessment: Height/Weight: Height 1.78 m Weight 76.657 kg Temp Pulse Resp BP Pulse Ox 98.5 F 60 16 114/58 98 03/22/21 11:04 03/22/21 11:04 03/22/21 11:04 03/22/21 11:04 03/22/21 11:04 Preop Diagnosis: anemia Proposed Procedure: Operation Date: 03/22/21 12:30 Proposed Procedures p EGD(Not Applicable) - Zechariah Naqvi MD s Colonoscopy(Not Applicable) - Zechariah Naqvi MD Familial anesthetic complications: none Was Beta Hiram taken within 24 hours: N/A Was Clonidine taken within 24 hours: N/A Last Intake: 21:00 Social: Social History: No alcohol and No tobacco Exam: Pre-Anes Outpt Exam: alert, oriented x 3, clear to auscultation bilaterally and regular rate & rhythm Airway: Submandibular: WNL Cervical ROM: WNL MP: 2 Dentition: Full Pulmonary: Pulmonary: None reported CV/HEM: CV/HEM: Anemia : : None reported Hepatic: Hepatic: None reported GI: GI: GERD (occ food related) Metabolic: Metabolic: None reported Musc/skel: Musc/skel: None reported Neuropsych: Neuropsych: None reported Anesthetic Plan: ASA status: 3 Other: Pt recieved 5 PRBC and 1FFP Risk of > 500 ml blood loss (7ml/kg in children): No Meds/Allergies Current Medications: Current Medications Generic Name Dose Route Start Last Admin Trade Name Freq PRN Reason Stop Dose Admin Acetaminophen 650 mg 03/20/21 17:03 03/21/21 14:38 Acetaminophen 32 5 Mg Tablet PO 650 mg Q6H PRN Administration Mild/Mod Pain Or Temp >/= 101 Lidocaine HCl 5 ml / Potassium 105 mls @ 25 mls/ hr 03/22/21 07:53 03/22/21 10:07 Chloride IV 03/22/21 12:04 25 mls/hr ONCE ONE Administration Pantoprazole Sodiu m 40 mg 03/20/21 23:00 03/22/21 10:03 Pantoprazole 40 Mg Sdv IVP 40 mg Q12H CORINNE Administration PFSH Anesthesia PFSH: Surgical History History of appendectomy Family History Father CAD (coronary artery disease) Mother Melanoma Father Throat cancer Social History Smoking and tobacco status: never smoked Alcohol intake: current Alcohol use comment: Drinks only on the weekends Substance/Drug Use: never Data Anesthesia CBC & Chem 7: 03/22/21 06:35 03/22/21 06:35 Other Labs: Laboratory Results - last 48 hr 03/20/21 03/20/21 03/20/21 11:26 11:26 11:26 WBC 6.2 RBC 2.19 L Hgb 2.9 L* Hct 12.8 L* MCV 58.4 L MCH 13.2 L MCHC 22.7 L RDW 23.9 H Plt Count 619 H MPV 8.9 Neut % (Auto) 67.4 Lymph % (Auto) 18.0 [place] % (Auto) 12.5 Eos % (Auto) 1.1 Baso % (Auto) 0.5 Reticulocyte % (Auto) Neut # (Auto) 4.17 Lymph # (Auto) 1.1 [place] # (Auto) 0.8 Eos # (Auto) 0.1 Baso # (Auto) 0.0 Nucleated RBC % (auto) 0.3 Nucleated RBCs # 0.0 ESR PT 14.10 INR 1.06 APTT 30.3 Sodium 134 L Potassium 3.9 Chloride 101 Carbon Dioxide 23 Anion Gap 13.9 BUN 11 Creatinine 0.6 L GFR Calculation 137.9 H Glucose 91 Calculated Osmolality 277 L Lactic Acid Calcium 8.2 L Phosphorus Magnesium 2.2 Iron Ferritin Total Bilirubin 0.3 AST 8 ALT < 5 Alkaline Phosphatase 118 NT-Pro-B Natriuret Pep Total Protein 6.1 L Albumin 3.9 Globulin 2.2 Carcinoembryonic Ag Vitamin B12 Folate TSH Blood Type Rho(D) Type Antibody Screen Crossmatch Reaction Clerical Check Pre-Trans Blood Type Pre-Trans Urine RBC Post-Trans Blood Type Post-Tx Visible Hemolys Post-Trans JORDI 03/20/21 03/20/21 03/20/21 11:26 11:26 11:26 WBC RBC Hgb Hct MCV MCH MCHC RDW Plt Count MPV Neut % (Auto) Lymph % (Auto) [place] % (Auto) Eos % (Auto) Baso % (Auto) Reticulocyte % (Auto) 1.9 Neut # (Auto) Lymph # (Auto) [place] # (Auto) Eos # (Auto) Baso # (Auto) Nucleated RBC % (auto) Nucleated RBCs # ESR 10 PT INR APTT Sodium Potassium Chloride Carbon Dioxide Anion Gap BUN Creatinine GFR Calculation Glucose Calculated Osmolality Lactic Acid Calcium Phosphorus Magnesium Iron Ferritin Total Bilirubin AST ALT Alkaline Phosphatase NT-Pro-B Natriuret Pep Total Protein Albumin Globulin Carcinoembryonic Ag Vitamin B12 Folate TSH Blood Type A Positive Rho(D) Type Positive / 4+ Antibody Screen Negative Crossmatch See Detail Reaction Clerical Check Pre-Trans Blood Type Pre-Trans Urine RBC Post-Trans Blood Type Post-Tx Visible Hemolys Post-Trans JORDI 03/20/21 03/20/21 03/20/21 11:26 11:26 11:26 WBC RBC Hgb Hct MCV MCH MCHC RDW Plt Count MPV Neut % (Auto) Lymph % (Auto) [place] % (Auto) Eos % (Auto) Baso % (Auto) Reticulocyte % (Auto) Neut # (Auto) Lymph # (Auto) [place] # (Auto) Eos # (Auto) Baso # (Auto) Nucleated RBC % (auto) Nucleated RBCs # ESR PT INR APTT Sodium Potassium Chloride Carbon Dioxide Anion Gap BUN Creatinine GFR Calculation Glucose Calculated Osmolality Lactic Acid Calcium Phosphorus Magnesium Iron 8 L Ferritin 5 L Total Bilirubin AST ALT Alkaline Phosphatase NT-Pro-B Natriuret Pep Total Protein Albumin Globulin Carcinoembryonic Ag 12.4 H Vitamin B12 465 Folate 10.3 TSH 1.91 Blood Type Rho(D) Type Antibody Screen Crossmatch Reaction Clerical Check Pre-Trans Blood Type Pre-Trans Urine RBC Post-Trans Blood Type Post-Tx Visible Hemolys Post-Trans JORDI 03/20/21 03/20/21 03/20/21 11:26 17:40 17:40 WBC RBC Hgb Hct MCV MCH MCHC RDW Plt Count MPV Neut % (Auto) Lymph % (Auto) [place] % (Auto) Eos % (Auto) Baso % (Auto) Reticulocyte % (Auto) Neut # (Auto) Lymph # (Auto) [place] # (Auto) Eos # (Auto) Baso # (Auto) Nucleated RBC % (auto) Nucleated RBCs # ESR PT 14.40 INR 1.08 APTT Sodium Potassium Chloride Carbon Dioxide Anion Gap BUN Creatinine GFR Calculation Glucose Calculated Osmolality Lactic Acid 0.9 Calcium Phosphorus Magnesium Iron Ferritin Total Bilirubin AST ALT Alkaline Phosphatase NT-Pro-B Natriuret Pep 411 H Total Protein Albumin Globulin Carcinoembryonic Ag Vitamin B12 Folate TSH Blood Type Rho(D) Type Antibody Screen Crossmatch Reaction Clerical Check Pre-Trans Blood Type Pre-Trans Urine RBC Post-Trans Blood Type Post-Tx Visible Hemolys Post-Trans JORDI 03/20/21 03/20/21 03/21/21 21:41 22:23 03:00 WBC 6.6 RBC 2.93 L Hgb 6.4 L* D 5.7 L* Hct 21.6 L D 19.9 L* MCV 67.9 L D MCH 19.5 L D MCHC 28.6 L D RDW 29.6 H Plt Count 521 H MPV 8.7 Neut % (Auto) 80.4 Lymph % (Auto) 10.5 [place] % (Auto) 7.5 Eos % (Auto) 0.2 Baso % (Auto) 0.9 Reticulocyte % (Auto) Neut # (Auto) 5.29 Lymph # (Auto) 0.7 L [place] # (Auto) 0.5 Eos # (Auto) 0.0 Baso # (Auto) 0.1 Nucleated RBC % (auto) 0.6 Nucleated RBCs # 0.0 ESR PT INR APTT Sodium Potassium Chloride Carbon Dioxide Anion Gap BUN Creatinine GFR Calculation Glucose Calculated Osmolality Lactic Acid Calcium Phosphorus Magnesium Iron Ferritin Total Bilirubin AST ALT Alkaline Phosphatase NT-Pro-B Natriuret Pep Total Protein Albumin Globulin Carcinoembryonic Ag Vitamin B12 Folate TSH Blood Type Rho(D) Type Antibody Screen Crossmatch Reaction Clerical Check No discrepancy Pre-Trans Blood Type Ap Pre-Trans Urine RBC TNP Post-Trans Blood Type A Positive Post-Tx Visible Hemolys No hemolysis Post-Trans JORDI Negative 03/21/21 03/21/21 03/21/21 03:00 12:04 12:04 WBC 6.0 RBC 3.64 L Hgb 7.4 L Hct 25.6 L MCV 70.3 L MCH 20.3 L MCHC 28.9 L RDW Not Reportable Plt Count 632 H MPV 8.4 Neut % (Auto) 80.8 Lymph % (Auto) 9.7 [place] % (Auto) 8.5 Eos % (Auto) 0.0 Baso % (Auto) 0.5 Reticulocyte % (Auto) Neut # (Auto) 4.84 Lymph # (Auto) 0.6 L [place] # (Auto) 0.5 Eos # (Auto) 0.0 Baso # (Auto) 0.0 Nucleated RBC % (auto) 1.0 Nucleated RBCs # 0.1 ESR PT 14.70 INR 1.11 APTT Sodium 132 L Potassium 3.6 Chloride 99 Carbon Dioxide 24 Anion Gap 12.6 BUN 9 Creatinine 0.7 GFR Calculation 115.4 Glucose 92 Calculated Osmolality 272 L Lactic Acid Calcium 7.9 L Phosphorus 3.7 Magnesium 2.0 Iron Ferritin Total Bilirubin 1.5 H AST 14 ALT < 5 Alkaline Phosphatase 112 NT-Pro-B Natriuret Pep Total Protein 5.9 L Albumin 3.6 Globulin 2.3 Carcinoembryonic Ag Vitamin B12 Folate TSH Blood Type Rho(D) Type Antibody Screen Crossmatch Reaction Clerical Check Pre-Trans Blood Type Pre-Trans Urine RBC Post-Trans Blood Type Post-Tx Visible Hemolys Post-Trans JORDI 03/21/21 03/21/21 03/22/21 12:04 19:25 00:22 WBC RBC Hgb 7.2 L 7.0 L Hct 24.8 L 24.1 L MCV MCH MCHC RDW Plt Count MPV Neut % (Auto) Lymph % (Auto) [place] % (Auto) Eos % (Auto) Baso % (Auto) Reticulocyte % (Auto) Neut # (Auto) Lymph # (Auto) [place] # (Auto) Eos # (Auto) Baso # (Auto) Nucleated RBC % (auto) Nucleated RBCs # ESR PT INR APTT Sodium 134 L Potassium 3.6 Chloride 99 Carbon Dioxide 21 L Anion Gap 17.6 BUN 9 Creatinine 0.8 GFR Calculation 98.9 Glucose 99 Calculated Osmolality 277 L Lactic Acid Calcium 8.8 Phosphorus Magnesium Iron Ferritin Total Bilirubin AST ALT Alkaline Phosphatase NT-Pro-B Natriuret Pep Total Protein Albumin Globulin Carcinoembryonic Ag Vitamin B12 Folate TSH Blood Type Rho(D) Type Antibody Screen Crossmatch Reaction Clerical Check Pre-Trans Blood Type Pre-Trans Urine RBC Post-Trans Blood Type Post-Tx Visible Hemolys Post-Trans JORDI 03/22/21 03/22/21 06:35 06:35 WBC RBC Hgb 7.0 L Hct 24.3 L MCV MCH MCHC RDW Plt Count MPV Neut % (Auto) Lymph % (Auto) [place] % (Auto) Eos % (Auto) Baso % (Auto) Reticulocyte % (Auto) Neut # (Auto) Lymph # (Auto) [place] # (Auto) Eos # (Auto) Baso # (Auto) Nucleated RBC % (auto) Nucleated RBCs # ESR PT INR APTT Sodium 135 L Potassium 3.2 L Chloride 97 L Carbon Dioxide 27 Anion Gap 14.2 BUN 8 Creatinine 0.7 GFR Calculation 115.4 Glucose 92 Calculated Osmolality 278 L Lactic Acid Calcium 8.3 L Phosphorus 3.2 Magnesium 2.4 H Iron Ferritin Total Bilirubin 0.7 AST 10 ALT 7 Alkaline Phosphatase 115 NT-Pro-B Natriuret Pep Total Protein 6.2 L Albumin 3.7 Globulin 2.5 Carcinoembryonic Ag Vitamin B12 Folate TSH Blood Type Rho(D) Type Antibody Screen Crossmatch Reaction Clerical Check Pre-Trans Blood Type Pre-Trans Urine RBC Post-Trans Blood Type Post-Tx Visible Hemolys Post-Trans JORDI Micro: Microbiology 03/20/21 22:18 Blood Culture - Preliminary Blood NEGATIVE TO DATE 03/20/21 22:18 Blood Culture - Preliminary Blood NEGATIVE TO DATE Cardiac Studies: No Data to Display
[2021-03-22] MEDS: sodium chloride 0.9% 1,000 ML 30 ML IV (12:26)
--- NOTE | 2021-03-22 14:08 | ANE.PACU2 ---
Inpatient post-anesthesia follow up: Airway intact: Yes Vital signs: Temperature 97.3 F Pulse Rate [Apical ] 74 Pulse Rate 58 Respiratory Rate 18 Blood Pressure [Le ft Arm] 129/72 Blood Pressure 124/69 Pulse Oximetry 99 Oxygen Delivery Me thod [ Room Air Current Rate & Del aracelis] Oxygen Delivery Me thod Room Air Oxygen Flow Rate Fraction of Inspir ed Oxygen Hydration adequate: Yes Nausea and vomiting: No Pain level: 1 Mental status: Baseline
--- NOTE | 2021-03-22 15:02 | PC.NURSE ---
1200- Patient off unit for procedure. PRBC infusing during this time. Transfusion completed by GI staff. No reactions noted during time of transfer. 1355- Patient arrived back to ICU, blood transfusion complete. Vitals stable at this time. Temp 98.5 degrees Fahrenheit.
--- NOTE | 2021-03-22 17:23 | PM.PN ---
Subjective Subjective: Interval history: No issues overnight, had multiple bowel movements, denies any abdominal pain Vitals/I&O/Wt Last Vital Signs Temp 98.5 F 03/22/21 14:00 Pulse 63 03/22/21 14:00 Resp 18 03/22/21 16:00 BP 91/45 03/22/21 16:00 Pulse Ox 100 03/22/21 16:00 03/22/21 03/22/21 03/22/21 06:59 14:59 22:59 Intake Total 455 / 455 Output Total Balance 454 / 454 Physical Exam Narrative: EXAM NARRATIVE: Abdomen: Soft Data : 03/22/21 06:35 03/22/21 06:35 Micro: Microbiology 03/20/21 22:18 Blood Culture - Preliminary Blood NEGATIVE TO DATE 03/20/21 22:18 Blood Culture - Preliminary Blood NEGATIVE TO DATE A&P Assessment and plan (1) Rectal mass: 60-year-old male who presented with iron deficiency anemia. EGD showed mild gastritis, colonoscopy showed diverticulosis in the sigmoid colon and a rectal mass concerning for malignancy. 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
[2021-03-22 17:57] LABS: Hematocrit 31.6 % (42.0-52.0); Hemoglobin 9.3 g/dL (11.7-16.6)
[2021-03-23] MEDS: pantoprazole 40 mg SDV IVP ×2 (01:20→10:30)
[2021-03-23 03:42] VITALS: BP 104/49; PULSE 57; RESP 17; TEMP 37.2; O2SAT 96
[2021-03-23 07:35] LABS: Basophils # 0.1 10^3/uL (0.0-0.1); Basophils % 0.8 %; Eosinophils # 0.3 10^3/uL (0.0-0.8); Eosinophils % 3.4 %; Hematocrit 26.5 % (42.0-52.0); Hemoglobin 7.7 g/dL (11.7-16.6); Lymphocytes # 1.9 10^3/uL (0.8-4.8); Lymphocytes % 24.2 %; Mean Corpuscular HGB Conc 29.1 g/dL (30.0-36.0); Mean Corpuscular Hemoglobin 21.4 pg (28.0-34.0); Mean Corpuscular Volume 73.8 fL (80-94); Monocytes # 0.9 10^3/uL (0.2-0.9); Monocytes % 11.6 %; Neutrophils # 4.61 10^3/uL (1.8-7.7); Neutrophils % 59.7 %; Nucleated Red Blood Cells % 0 %; Platelet Count 442 10^3/cmm (130-400); Red Blood Count 3.59 10^6/uL (4.1-5.3); White Blood Count 7.7 10^3/uL (4.0-10.0)
[2021-03-23 08:00] VITALS: BP 103/50; PULSE 58; RESP 18; TEMP 36.6; O2SAT 97
--- NOTE | 2021-03-23 08:01 | P.PN_ITS ---
Subjective Subjective: Interval history: Patient had mild abdominal pain, no further bleeding per rectum Vitals/I&O/Wt Last Vital Signs Temp 98.9 F 03/23/21 03:42 Pulse 57 L 03/23/21 03:42 Resp 17 03/23/21 03:42 BP 104/49 03/23/21 03:42 Pulse Ox 96 03/23/21 03:42 03/22/21 03/23/21 03/23/21 22:59 06:59 14:59 Intake Total 600 / 1055 Output Total 401 / 552 150 / 552 Balance 199 / 503 -150 / 503 Physical Exam Narrative: EXAM NARRATIVE: Abdomen: Soft Data : 03/22/21 17:14 03/22/21 06:35 A&P Assessment and plan (1) Rectal mass: Status post EGD and colonoscopy showing rectal mass concerning for malignancy Hemoglobin is stable with evidence of active GI bleed DC home today with follow-up next week for biopsy results Status: Acute Attestations Medical Necessity Statement*: Anemia with rectal mass, DC home today 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
[2021-03-23 08:11] LABS: Carcinoembryonic Antigen 12.9 ng/mL (0.0-4.7)
[2021-03-23 08:22] LABS: Alanine Aminotransferase < 5 U/L (0-41); Albumin Level 3.1 g/dL (3.5-5.2); Alkaline Phosphatase 94 IU/L (40-130); Anion Gap 15.5 (5-19); Aspartate Amino Transferase 9 U/L (0-40); Blood Urea Nitrogen 9 mg/dL (6-20); Calcium 8.2 mg/dL (8.5-10.5); Carbon Dioxide 23 mmol/L (22-29); Chloride 101 mmol/L (98-107); Globulin 2.3 g/dL (1.3-4.6); Glomerular Filtration Rate 115.4 mL/min (90-130); Glucose 88 mg/dL (65-115); Magnesium 2.1 mg/dL (1.7-2.3); Osmolality Calculated 280 mOsm/kg (285-295); Phosphorus 3.1 mg/dL (2.5-4.5); Potassium 3.5 mmol/L (3.5-5.1); Sodium 136 mmol/L (136-145); Total Bilirubin 0.6 mg/dL (0.15-1.2); Total Protein 5.4 g/dL (6.6-8.7)
[2021-03-23 08:30] LABS: Add RBC Morph Yes; Slide Review Slide Review Perform
[2021-03-23 08:33] LABS: Anisocytosis 2+; Hypochromasia 1+; Macrocytosis 1+; Microcytosis 1+; Poikilocytosis 2+; Spherocytes 1+
[2021-03-23 08:34] LABS: Ovalocytes 1+; Tear Drop Cells Trace
[2021-03-23 08:35] LABS: Schistocytes Trace
[2021-03-23 08:37] LABS: RBC Morph Comp Yes
[2021-03-23 11:16] VITALS: BP 109/54; PULSE 61; RESP 18; TEMP 36.8; O2SAT 99
--- NOTE | 2021-03-23 11:47 | PM.DCS ---
Discharge Providers Date of Admission: 03/20/21 17:03 Date of Discharge: March 23, 2021 Attending Provider at Admission: Kartik Blanca MD Attending Provider at Discharge: Kartik Blanca MD Primary Care Provider: Salma Perez DO Diagnoses at Discharge Discharge Diagnosis (1) Rectal mass: Status: Acute Reason for Visit Reason for Visit: LOW BLOOD COUNT Hospital Course Hospital Course This is a 60-year-old male with no significant past medical history who presents to [facility] due complaints of low hemoglobin Patient was admitted to [facility] for acute symptomatic anemia, hemoglobin 2.8, with fatigue, weight loss, lightheadedness. He received a total of 5 units PRBC, 1 unit FFP as inpatient. Hemoglobin at discharge was 7.7. Patient underwent a EGD and colonoscopy by Dr. Naqvi, was found to have a rectal mass. Patient will follow up with Dr. Naqvi next week for biopsy results. For his significant constipation, discharged on lactulose. Patient has evidence of iron deficiency anemia, I was hesitant about giving him IV iron as inpatient due to the risk of iron overload, I will have him follow-up with Dr. Wade as outpatient for rectal cancer and iron deficiency anemia, decision to give him IV Venofer. Nonetheless have discharged him on p.o. iron. Follow-up with primary care provider next week for recheck CBC He was advised that if he were to have lightheadedness, dizziness, worsening weakness come back to the emergency room Physical Exam Const: COMMON NORMALS: no acute distress and patient oriented x3 HENMT: COMMON NORMALS: normocephalic HEAD & SCALP: normocephalic Neck/C-Spine: COMMON NORMALS: no JVD Resp: COMMON NORMALS: normal respiratory effort, No retractions, No use of accessory muscles and clear to auscultation bilaterally AUSCULTATION: clear to auscultation bilaterally Cardio: COMMON NORMALS: no JVD, regular rate, regular rhythm, S1 normal heart sound present and S2 normal heart sound present RATE: regular rate RHYTHM: regular rhythm HEART SOUNDS: S1 normal heart sound present and S2 normal heart sound present GI: COMMON NORMALS: Normal to inspection, nondistended, normoactive bowel sounds present, Soft to palpation, non-tender, No hepatosplenomegaly present, no masses and no bruits PALPATION: Yes Soft to palpation and Yes No hepatosplenomegaly present Extremity: COMMON NORMALS: capillary refill normal, no clubbing, cyanosis or edema, no calf tenderness and no pedal edema Neuro: COMMON NORMALS: patient oriented x3 Psych: COMMON NORMALS: mental status grossly normal Discharge Data Data Completed and Pending: Completed Studies During Hospitalization Category Date Time Status CT abdomen pelvis wo con [id number] Urge nt Cat Scan 03/20/21 12:30 Completed Pending at discharge Category Date Time Status Blood Culture Sta t Lab 03/20/21 22:18 Results Complete Blood Co unt w/Auto AM LABS Lab 03/24/21 04:00 Ordered Complete Blood Co unt w/Auto AM LABS Lab 03/25/21 04:00 Ordered Pathology: Surgic al [PTH] Routine Pth 03/22/21 13:59 Ordered CV echo complete* [id number] Routine Ultrasound 03/22/21 05:00 Taken Labs from last 24 hours 03/23/21 03/23/21 03/22/21 05:59 05:59 17:14 WBC 7.7 RBC 3.59 L Hgb 7.7 L 9.3 L D Hct 26.5 L 31.6 L D MCV 73.8 L MCH 21.4 L MCHC 29.1 L RDW Not Reportable Plt Count 442 H MPV 9.0 Neut % (Auto) 59.7 Lymph % (Auto) 24.2 Patrick % (Auto) 11.6 Eos % (Auto) 3.4 Baso % (Auto) 0.8 Neut # (Auto) 4.61 Lymph # (Auto) 1.9 Patrick # (Auto) 0.9 Eos # (Auto) 0.3 Baso # (Auto) 0.1 Nucleated RBC % (a uto) 0 Nucleated RBCs # 0.0 Hypochromasia 1+ H Poikilocytosis 2+ H Anisocytosis 2+ H Microcytosis 1+ H Macrocytosis 1+ H Spherocytes 1+ Tear Drop Cells Trace Ovalocytes 1+ H Schistocytes Trace Sodium 136 Potassium 3.5 Chloride 101 Carbon Dioxide 23 Anion Gap 15.5 BUN 9 Creatinine 0.7 GFR Calculation 115.4 Glucose 88 Calculated Osmolal ity 280 L Calcium 8.2 L Phosphorus 3.1 Magnesium 2.1 Total Bilirubin 0.6 AST 9 ALT < 5 Alkaline Phosphata se 94 Total Protein 5.4 L Albumin 3.1 L Globulin 2.3 Carcinoembryonic A g 12.9 H Crossmatch 03/20/21 11:26 WBC RBC Hgb Hct MCV MCH MCHC RDW Plt Count MPV Neut % (Auto) Lymph % (Auto) [place] % (Auto) Eos % (Auto) Baso % (Auto) Neut # (Auto) Lymph # (Auto) Patrick # (Auto) Eos # (Auto) Baso # (Auto) Nucleated RBC % (a uto) Nucleated RBCs # Hypochromasia Poikilocytosis Anisocytosis Microcytosis Macrocytosis Spherocytes Tear Drop Cells Ovalocytes Schistocytes Sodium Potassium Chloride Carbon Dioxide Anion Gap BUN Creatinine GFR Calculation Glucose Calculated Osmolal ity Calcium Phosphorus Magnesium Total Bilirubin AST ALT Alkaline Phosphata se Total Protein Albumin Globulin Carcinoembryonic A g Crossmatch See Detail Vitals: Last Vital Signs Temp 98.2 F 03/23/21 11:16 Pulse 61 03/23/21 11:16 Resp 18 03/23/21 11:16 BP 109/54 03/23/21 11:16 Pulse Ox 99 03/23/21 11:16 Discharge Plan Discharge Patient Disposition: Home Condition: Stable Prescriptions: New lactulose 10 gram/15 mL solution 15 ml PO BID Qty: 237 RF: 2 ferrous fumarate 325 mg (106 mg iron) tablet 325 mg PO BID 30 Days Qty: 60 RF: 0 Discontinued ibuprofen 200 mg Tablet 200 mg PO Q6H PRN (Reason: Pain) RF: 0 Discharge Orders: Discharge Order (Routine); Ordered 03/23/21 Ordered By: Kartik Blanca Referrals: Zechariah Naqvi MD [Physician] - 7-10 days (Televisit) Natanael Wade MD [Hospitalist] - 7-10 days (Fe defeiency anemia, rectal mass) Discharge Diet: Regular Discharge Activity: Resume usual activity Patient Instructions: GI Discharge Instructions, Opioid Safety Activity Restrictions/Additional Instructions: -Follow-up with primary care provider in 1 week to recheck CBC -Follow-up with hematology oncology -Follow-up with Dr. Naqvi Discharge Attestations Time Spent in Discharge Care*: less than 30 min Quality Metrics Clinical Quality Measures During this hospital stay, did patient experience: None Coding Level of Care Code Acute Chg FW DC note Diagnoses Rectal mass K62.89
[2021-03-23 13:29] VITALS: BP 109/54; PULSE 61; RESP 18; TEMP 36.8; O2SAT 99
[2021-04-01 10:46] LABS: Miscellaneous Test See Scanned Lab Rpt
== END 2021-03-23 13:29 | disposition home or self-care (01) | DRG 812 ==
LOC: ER 13:52 → ICU 17:09 → MEDSURG 03-22 17:39
PROVIDERS: Internal Medicine; Surgery; Admitting Provider Family Medicine; Emergency Provider Student in an Organized Health Care Education/Training Program; PCP Family Medicine; Visit Provider Family Medicine
PROC: 0DJ08ZZ Inspection of Upper Intestinal Tract, Via Natural or Artificial Opening Endoscopic (ICD-10-PCS; CPT 43235; principal; 2021-03-22 12:30)
PROC: 0DJD8ZZ Inspection of Lower Intestinal Tract, Via Natural or Artificial Opening Endoscopic (ICD-10-PCS; CPT 45378; 2021-03-22 12:30)
DX: D50.9 Iron deficiency anemia, unspecified (principal); K62.9 Disease of anus and rectum, unspecified; K59.00 Constipation, unspecified; K57.30 Diverticulosis of large intestine without perforation or abscess without bleeding; K64.9 Unspecified hemorrhoids; R63.4 Abnormal weight loss; Z68.24 Body mass index [BMI] 24.0-24.9, adult; Z79.1 Long term (current) use of non-steroidal anti-inflammatories (NSAID); Z72.89 Other problems related to lifestyle
CPT/HCPCS: 36415; 36430; 43235; 45380; 74176; 80048; 80053; 80500; 81301; 82378; 82607; 82728; 82746; 83540; 83605; 83735; 83880; 84100; 84443; 85014; 85018; 85025; 85045; 85610; 85651; 85730; 86850; 86900; 86920; 86927; 87040; 88305; 88360; 93306; 94664; 96374; 99291; 99292; C9113; J1940; J2704; J3480; J7030; J7040; J7050; P9016; P9017

== ENCOUNTER 2021-05-06 10:01 | Outpatient (CLI) | payer BC, SELFPAY ==
[2021-05-06 12:18] LABS: Basophils # 0.1 10^3/uL (0.0-0.1); Basophils % 1.8 %; Eosinophils # 0.6 10^3/uL (0.0-0.8); Eosinophils % 10.3 %; Hematocrit 31.4 % (42.0-52.0); Hemoglobin 9.1 g/dL (11.7-16.6); Lymphocytes # 1.2 10^3/uL (0.8-4.8); Mean Corpuscular Hemoglobin 25.3 pg (28.0-34.0); Mean Corpuscular Volume 87.2 fL (80-94); Monocytes # 0.5 10^3/uL (0.2-0.9); Monocytes % 8.7 %; Neutrophils # 3.21 10^3/uL (1.8-7.7); Nucleated Red Blood Cells % 0 %; Platelet Count 478 10^3/cmm (130-400); White Blood Count 5.6 10^3/uL (4.0-10.0)
[2021-05-06 12:31] LABS: Alanine Aminotransferase 9 U/L (0-41); Alkaline Phosphatase 91 IU/L (40-130); Aspartate Amino Transferase 13 U/L (0-40); Blood Urea Nitrogen 7 mg/dL (8-23); Calcium 8.6 mg/dL (8.5-10.5); Carbon Dioxide 29 mmol/L (22-29); Chloride 102 mmol/L (98-107); Ferritin 12 ng/mL (30-400); Globulin 2.7 g/dL (1.3-4.6); Glomerular Filtration Rate 137.4 mL/min (90-130); Glucose 88 mg/dL (65-115); Iron 14 ug/dL (59-158); Osmolality Calculated 287 mOsm/kg (285-295); Percent Saturation 3.4 % (20-50); Sodium 140 mmol/L (136-145); Total Bilirubin 0.2 mg/dL (0.15-1.2); Total Iron Binding Capacity 407 mcg/dl; Total Protein 6.7 g/dL (6.6-8.7); Unsaturated Iron Binding 393 ug/dL (112-347)
[2021-05-06 12:53] LABS: Carcinoembryonic Antigen 6.6 ng/mL (0.0-4.7)
--- NOTE | 2021-05-06 17:44 | ONC CON_ITS ---
Dr. Wade New Patient Note Patient: Hao Reddy Unit #: [id number]: 1960 Dicatated By: Natanael Wade M.D.Date of Visit: May 06, 2021 Onc MED New Patient/Consult Referring Physician: Dr. SILVESTRE CONLEY MD Chief Complaint: Colon cancer. 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 On 03/20/2021 he was admitted to the hospital with severe anemia, hemoglobin as low as 2.9 g. He reported having black tarry stools. He was transfused a total of 5 units of PRBC. His EGD on 03/22/2021 was unremarkable except for some mild nonerosive gastritis in the antrum. Colonoscopy to the cecum showed a malignant appearing mass in the rectum extending from the first rectal fold up to the rectosigmoid junction. The only other finding was mild diverticulosis. Biopsy of the mass showed moderately differentiated invasive adenocarcinoma. The tumor showed intact nuclear expression of mismatch repair proteins. His CT abdomen/pelvis showed dilated colon containing a large amount of fecal material. Also noted was a nonobstructing small central right renal calculus and cholelithiasis. There was no evidence of metastatic disease. His baseline CEA was 12.9 ng/mL. He was referred to Dr. Lowell brito. On 04/23/2021 he underwent robotic assisted laparoscopic low anterior resection. The obvious area of tumor was noted to be above the peritoneal reflection. There was no evidence of a locally advanced feature. Pathology showed moderately differentiated adenocarcinoma involving the sigmoid colon and upper rectum. The tumor measured 9.5 x 9 x 1.4 cm. It showed invasion through the muscularis propria into the perirectal tissue. All margins were uninvolved, the closest being the radial margin measuring 0.9 cm. There was no evidence of lymphovascular or perineural invasion and there was no involvement in 45 lymph nodes. Pathologic staging was pT3, pN0. Thus far he has had an uneventful postop recovery. He is scheduled to have his david removed on Thursday. He says his energy is pretty good. He is getting around well and he can do light work. ECOG score is 1. He has good appetite. His weight is down about 20 pounds from normal. He does not have fever or night sweats. He does not complain of shortness of breath, cough, or chest pain. He is still having some abdominal discomfort in the right lower quadrant area when he is lying on his left side. He has not been having nausea. He was having constipation, but that is getting better. He is not aware of any blood in the stool. He has some hesitancy with urination. He has no significant joint or bone pain. He does not complain of headache. He has occasional dizziness. He sometimes has tingling in his fingers. He has no other focal neurologic symptoms. Past Medical History: He had no previous ongoing medical illnesses. Past Surgical History: He underwent EGD and colonoscopy on 03/22/2021 and he underwent robotic assisted laparoscopic low anterior resection on 04/23/2021. His only prior surgery was an appendectomy. Medications: Acetaminophen 1 (500 mg) Tablet Oral q 6 hours PRN, Constulose 15 (10 g/15mL) Solution Oral PRN, oxyCODONE HCl 1 (5 mg) Tablet Oral q 4 hours PRN Allergies: No Known Allergies. Social History: Mr. Reddy is single. 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 He is a non-smoker. He has occasional alcohol use. Family History: Mr. Reddy's mother at age 91: melanoma. Mr. Reddy's father at age 86: coronary artery disease, and throat cancer. Mr. Reddy has 4 brothers: 3 alive, 1 . Mr. Reddy's first brother's dementia. Another brother's esophageal cancer. Another brother's type ii diabetes. Another brother's type ii diabetes. He has 4 sisters: 4 alive. Father had heart disease and at age 86. Mother lived to age 91. A brother age 72 with complications of dementia. Another brother has recurrent esophageal cancer, and 2 brothers have diabetes. Review Of Symptoms: Constitutional - He is generally feeling good following surgery. His energy and activity level are improving daily. His appetite is good. He reports his weight is down about 20 pounds from his normal weight of 185. No fever, night sweats, or hot flashes. ECOG score is 1, Eyes - No change in vision, ENMT - No hearing loss or tinnitus. No sinus congestion/drainage. No mouth sores. No sore throat or difficulty swallowing, Hematologic/Lymphatic - No abnormal bruising, Respiratory - No shortness of breath. No cough. No pleuritic pain or hemoptysis, Cardiovascular - No angina pain. No palpitations, Gastrointestinal - No nausea or vomiting. No heartburn or acid reflux. He has had some constipation, but bowels are getting better. He is not aware of having any blood in the stool, Genitourinary (M) - No dysuria or hematuria. No urinary frequency. No urgency or incontinence. He has some hesitancy, Musculoskeletal - No joint or bone pain, Integumentary - No skin eruption, Neurologic - No headache. He occasionally has dizziness. He has had some tingling in his fingers. No other focal neurologic symptoms, Psychiatric - No anxiety or depression. He sometimes has difficulty sleeping. Vital Signs: Performed on May 06, 2021 11:13: 0, 4, 23.93, 1.93 sq.m, 70 in, 96 %, 56 /min (LOW), 18 /min, 126/71 mm(hg), 98.4 F, and 166.8 lbs (HIGH). Physical Examination: Constitutional - He appears to be in good general health, Eyes - Sclerae nonicteric. Conjunctivae clear, ENMT - No lesions noted in the oral cavity, Neck - No mass or thyromegaly, Hematologic/Lymphatic - No cervical, clavicular, or axillary adenopathy, Respiratory - Lungs are clear with good air movement bilaterally, Cardiovascular - Heart rhythm is regular. There is no murmur, gallop, or rub noted, Abdomen - Soft. The incisions appear well-healed. Liver and spleen are not enlarged. There is no abdominal mass or ascites noted and there is no inguinal adenopathy, Back/Spine - No spine or CVA tenderness noted, Extremities - Slight edema. Pedal pulses are palpable bilaterally, Integumentary - No rashes. No suspicious skin lesions noted, Neurologic - No focal neurologic deficits noted. Problem List: 1. Grade 2 adenocarcinoma of the rectosigmoid colon, stage IIA (T3, N0, M0), MSI stable. He underwent robotic assisted laparoscopic low anterior resection on 04/23/2021. 2. He had iron deficiency anemia at initial presentation. Problems Addressed with this Encounter and Plan: 1. Patient with grade 2 adenocarcinoma of the rectosigmoid colon, MSI stable. He underwent robotic assisted laparoscopic low anterior resection on 04/23/2021. His disease was stage IIA (T3, N0, M0), with pathology showing no involvement in 45 lymph nodes. He had a relatively large primary tumor measuring 9.5 x 9 x 1.4 cm and he did appear to have some associated colonic obstruction by CT scan. There were no other features of high risk disease. We discussed the fact that with stage III disease there is indication for adjuvant chemotherapy to reduce the risk of recurrence, but a significant benefit has not been documented with stage II disease, particularly in the absence of high risk features. The only concern I have is the fact that his primary tumor was relatively large, and for that reason I did talk to him about the possibility of having further evaluation with Oncotype DX. If this were to indicate a higher than average risk of recurrence, he may still want to consider adjuvant chemotherapy. However, I stressed him the fact that this test is not predictive with regard to chemotherapy benefit. I will plan to discuss this with him further when the Oncotype DX results are available. In the meantime, I also will recheck his baseline laboratory studies to include CBC, comprehensive metabolic profile, and repeat CEA level. 2. He had iron deficiency anemia at initial presentation. He initially had been on oral iron supplementation, but it was stopped after his surgery. As such, I will recheck his serum iron studies and ferritin, and he will restart his oral iron as indicated. Signed By: Natanael Wade M.D. <<Signature on File>>
== END 2021-05-06 10:02 | disposition home or self-care (01) ==
LOC: ONCMED 10:04
PROVIDERS: PCP Family Medicine; Visit Provider Internal Medicine Medical Oncology
DX: C19 Malignant neoplasm of rectosigmoid junction (principal); Z90.49 Acquired absence of other specified parts of digestive tract; D50.9 Iron deficiency anemia, unspecified
CPT/HCPCS: 36415; 80053; 82378; 82728; 83540; 83550; 85025; 99205

== ENCOUNTER 2021-05-15 09:54 | Outpatient (CLI) | payer BC, SELFPAY ==
--- NOTE | 2021-05-15 10:01 | CT_ITS ---
WS: [id number] CT CHEST WITH INTRAVENOUS CONTRAST HISTORY: COLON CANCER TECHNIQUE: Contiguous 5 mm axial imaging performed on the thorax. Coronal and sagittal reformats are submitted. All CT scans at [facility] use at least one of these dose optimization techniq ues: automated exposure control; mA and/or kV adjustment per patient size (includes targeted exams wh ere dose is matched to clinical indication); or iterative reconstruction. CONTRAST: Omnipaque 300; 95 mL IV. DLP: 815.3 mGycm COMPARISON: None available. Lungs and central airway: Very mild hyperexpansion. There are no suspicious nodules or masses. No ple ural thickening. Pleura: Normal. No pleural effusion. Heart and pericardium: Normal size heart with no pericardial effusion. Mediastinum and glen: Small subcentimeter RIGHT hilar lymph nodes. Vessels: Very mild atherosclerosis of aorta. Normal size pulmonary artery. Chest wall and lower neck: Mild gynecomastia. No abnormality at the thoracic inlet. Upper abdomen: Low-attenuation mass measuring 15 mm in the inferior RIGHT lobe of the liver. No addit ional lesions are identified. No adrenal mass. Gallbladder is heterogeneous and probably contains sto abimael. There is extensive tortuosity of the colon and increased fecal material in the transverse colon. Osseous structures: No destructive process. CT/CT chest w con* [id number] IMPRESSION: 1. No evidence for metastatic disease to the lungs. 2. Mild pulmonary hyperexpansion. 3. Suspicious for a 15 mm metastatic lesion involving the inferior RIGHT lobe of the liver. Not definitely seen on the prior study which is a noncontrast CT from 03/20/2021. Recommend follow-up CT evaluation of the abdomen and pelvis. 4. Negative adrenal glands. 5. Abnormal gallbladder. Stones and/or gallbladder soft tissue mass should be considered. Consider follow-up gallbladder ultrasound evaluation.
[2021-05-15] MEDS: iohexol 300 mg/mL 100 mL Btl IV (10:15)
== END 2021-05-15 09:55 | disposition home or self-care (01) ==
PROVIDERS: PCP Family Medicine; Visit Provider Internal Medicine Medical Oncology
DX: C19 Malignant neoplasm of rectosigmoid junction (principal)
CPT/HCPCS: 71260; Q9967

== ENCOUNTER 2021-05-17 07:03 | Outpatient (CLI) | payer BC, SELFPAY ==
--- NOTE | 2021-05-17 07:09 | US_ITS ---
WS: [id number] ULTRASOUND ABDOMEN LIMITED CLINICAL INFORMATION: COLON CA EVALUATION OF 15MM LIVER LESION COMPARISON: None. FINDINGS: Liver Size: Normal. Craniocaudal length: 14.7 cm. Echogenicity: Normal. Surface nodularity: None. Mass (size and location): Slightly echogenic lesion with a hypoechoic halo undersurface right hepatic lobe suspicious for metastatic disease. Hypoechoic halo is suspicious for metastasis. Additional 1.0 x 0.8 x 0.9 cm echogenic lesion with less distinct hypoechoic halo left hepatic lobe. This lesion is nonspecific and Differential considerations include hemangioma versus hypervascular me tastasis Bile ducts Intrahepatic ducts: Normal. Common bile duct diameter: 0.6 cm. Gallbladder Cholelithiasis Gallstones: Present Gallbladder sludge: None. Gallbladder wall thickening: None. Pericholecystic fluid: None. Sonographic Ludwig sign: Absent. Pancreas Normal as visualized. Right kidney: Simple right renal cyst measuring 1.3 x 1.8 x 1.0 cm Hydronephrosis: None. Size: 11.2 cm x 5.3 cm x 4.7 cm. Abdominal aorta and IVC Visualized portions are normal. Ascites: None. US/US abdomen limited [id number] IMPRESSION: 1. Targetoid-type lesion with a hypoechoic halo undersurface right hepatic lob e suspicious for metastatic disease. Lesion measures 1.7 x 1.7 x 1.4 CM. 2. Additional 1.0 x 0.8 x 0.9 cm echogenic lesion with subtle hypoechoic halo left hepatic lobe. Differential considerations include hemangioma versus hyperv ascular metastasis 3. MRI liver without and with gadolinium enhancement could be obtained for bet ter anatomic detail and to assess for additional lesions. Triphasic noncontrast and contrast-enhanced CT abdomen pelvis with liver protocol is a secondary opt ion. 4. Shadowing cholelithiasis.
== END 2021-05-17 07:04 | disposition home or self-care (01) ==
LOC: RAD 07:06
PROVIDERS: PCP Family Medicine; Visit Provider Internal Medicine Medical Oncology
DX: C19 Malignant neoplasm of rectosigmoid junction (principal); K80.20 Calculus of gallbladder without cholecystitis without obstruction; K76.9 Liver disease, unspecified
CPT/HCPCS: 76705

== ENCOUNTER 2021-05-21 06:00 | Outpatient (CLI) | payer BC, SELFPAY ==
--- NOTE | 2021-05-21 19:06 | ONC FU_ITS ---
Dr. Wade Patient Follow-Up Note Patient: Hao Reddy Unit #: [id number]: 1960 Dicatated By: Natanael Wade M.D.Date of Visit:May 21, 2021 Onc Med Follow-up/Prog Note Chief Complaint: Colon cancer. 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 On 03/20/2021 he was admitted to the hospital with severe anemia, hemoglobin as low as 2.9 g. He reported having black tarry stools. He was transfused a total of 5 units of PRBC. His EGD on 03/22/2021 was unremarkable except for some mild nonerosive gastritis in the antrum. Colonoscopy to the cecum showed a malignant appearing mass in the rectum extending from the first rectal fold up to the rectosigmoid junction. The only other finding was mild diverticulosis. Biopsy of the mass showed moderately differentiated invasive adenocarcinoma. The tumor showed intact nuclear expression of mismatch repair proteins. His CT abdomen/pelvis showed dilated colon containing a large amount of fecal material. Also noted was a nonobstructing small central right renal calculus and cholelithiasis. There was no evidence of metastatic disease. His baseline CEA was 12.9 ng/mL. He was referred to Dr. Lowell De Santiago. On 04/23/2021 he underwent robotic assisted laparoscopic low anterior resection. The obvious area of tumor was noted to be above the peritoneal reflection. There was no evidence of a locally advanced feature. Pathology showed moderately differentiated adenocarcinoma involving the sigmoid colon and upper rectum. The tumor measured 9.5 x 9 x 1.4 cm. It showed invasion through the muscularis propria into the perirectal tissue. All margins were uninvolved, the closest being the radial margin measuring 0.9 cm. There was no evidence of lymphovascular or perineural invasion and there was no involvement in 45 lymph nodes. Pathologic staging was pT3, pN0. I had seen him initially on 05/06/2021 to discuss adjuvant chemotherapy. While there was no definite indication for treatment with stage II disease, I was concerned about the relatively large size of the primary tumor and I discussed the possibility of evaluating further with Oncotype DX. In addition, I did recommend that he complete staging with chest CT, which had not been done preoperatively. He returns now for a follow-up visit, as the chest CT scan on 05/15/2021 showed a 15 mm lesion involving the inferior right lobe of the liver which was suspicious for a metastasis. That lesion was not evident on the initial CT abdomen/pelvis from February 2001, but that was a noncontrast study. There were no other suspicious lesions noted on the chest CT, though the gallbladder also had an abnormal appearance. Further evaluation with abdominal ultrasound on 05/17/2021 showed a slightly echogenic lesion with a hypoechoic halo involving the undersurface of the right hepatic lobe, suspicious for a metastatic lesion. The lesion measured 1.7 x 1.7 x 1.4 cm. An additional echogenic lesion in the left hepatic lobe measuring 1.0 x 0.8 x 0.9 cm was felt to be indeterminate with the differential to include hemangioma versus hypervascular metastasis. Also noted was evidence of shadowing cholelithiasis. Medications: Acetaminophen 1 (500 mg) Tablet Oral q 6 hours PRN, Constulose 15 (10 g/15mL) Solution Oral PRN, oxyCODONE HCl 1 (5 mg) Tablet Oral q 4 hours PRN Allergies: No Known Allergies. Vital Signs: Performed on May 21, 2021 08:13 Height - 70.00 in Weight - 172.6 lbs (HIGH) BSA - 1.96 sq.m BMI - 24.77 Temperature - 98.4 F Pulse - 57 /min (LOW) Respiration - 18 /min BP - 127/69 mm(hg) O2 Sat - 97 % Pain - 4 Fatigue - 0 Lab/Imaging: Test performed on May 06, 2021 11:55 Ferritin 12 ng/mL Iron 14 mcg/dL Sodium 140 mmol/L Iron Binding Capacity (TIBC) 407 mcg/dl Potassium 4.0 mmol/L % Iron Saturation 3.4 % Chloride 102 mmol/L CO2 29 mmol/L UIBC 393 mcg/dL Anion Gap 13.0 BUN 7 mg/dL Creatinine 0.6 mg/dL Cr Clearance (Est) 140.1100 mL/min eGFR 137.4 mL/min Glucose 88 mg/dL Osmolality - Calculated 287 mOsm/kg Calcium 8.6 mg/dL Protein, Total 6.7 g/dL Albumin 4.0 g/dL Globulin 2.7 g/dL Bilirubin, Total 0.2 mg/dL ALT (SGPT) 9 U/L AST (SGOT) 13 U/L Alkaline Phosphatase 91 IU/L WBC 5.6 10 3/uL RBC 3.60 10 6/uL HGB 9.1 g/dL HCT 31.4 % MCV 87.2 fL MCH 25.3 pg MCHC 29.0 g/dL RDW 22.0 % Platelet Count 478 10 3/cmm MPV 8.0 fL Neutrophils 3.21 10 3/uL Lymphocytes 1.2 10 3/uL Monocytes 0.5 10 3/uL Eosinophils 0.6 10 3/uL Basophils 0.1 10 3/uL Neutrophil % 57.0 % Lymphocyte % 22.0 % Monocyte % 8.7 % Eosinophil % 10.3 % Basophils % 1.8 % NRBC % 0 % CEA 6.6 ng/mL Problem List: 1. Grade 2 adenocarcinoma of the rectosigmoid colon, stage IIA (T3, N0, M0), MSI stable. He underwent robotic assisted laparoscopic low anterior resection on 04/23/2021. 2. He had iron deficiency anemia at initial presentation. Problems Addressed with this Encounter and Plan: Patient with grade 2 adenocarcinoma of the rectosigmoid colon, MSI stable. He underwent robotic assisted laparoscopic low anterior resection on 04/23/2021. His disease was stage IIA (T3, N0, M0), with pathology showing no involvement in 45 lymph nodes. He had a relatively large primary tumor measuring 9.5 x 9 x 1.4 cm and he did appear to have some associated colonic obstruction by CT scan. There were no other features of high risk disease. While there was no definite indication for adjuvant chemotherapy, I was concerned about the relatively large size of his primary tumor, and with his initial visit I had discussed the possibility of evaluating further with Oncotype DX. I also recommended that he complete staging with chest CT. That study showed a lesion in the right hepatic lobe which was suspicious for metastasis. That finding was confirmed with a subsequent ultrasound study, which showed an additional lesion in the left hepatic lobe felt to be indeterminate and consistent with either hemangioma or a hypervascular metastatic lesion. The CT and ultrasound findings were reviewed with the patient I also reviewed the CT images. We discussed the clinical implications. He now has findings suspicious for 1 or possibly 2 sites of metastatic involvement in the liver, which would change his disease to stage ELIZA (M1a). However, with limited involvement the disease would still potentially be amenable to liver directed therapy, but it also would be a definite indication for systemic therapy. At this point I am going to contact Dr. Burton in [place] to first evaluate for liver directed therapy, and we can also then plan for systemic therapy accordingly. Signed By: Natanael Wade M.D. <<Signature on File>>
== END 2021-05-21 06:01 | disposition home or self-care (01) ==
PROVIDERS: PCP Family Medicine; Visit Provider Internal Medicine Medical Oncology
DX: C19 Malignant neoplasm of rectosigmoid junction (principal); D50.9 Iron deficiency anemia, unspecified; Z90.49 Acquired absence of other specified parts of digestive tract
CPT/HCPCS: 99214